=== PATIENT | male | born 1975 | race African-American/Black ===

== ENCOUNTER 2019-12-29 16:52 | Emergency (ER) | payer MEDICAID ==
[~2019-12-29] VITALS: Ht 172.7 cm; Wt 86.3 kg
--- NOTE | 2019-12-29 18:22 | RAD ---
PQRS Compliance Statement: One or more of the following individualized dose reduction techniques were utilized for this examination: 1. Automated exposure control 2. Adjustment of the mA and/or kV according to patient size 3. Use of iterative reconstruction technique CT head and maxillofacial without contrast 12/29/2019 5:47 PM INDICATION: Linear rash and forehead. 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 Multiple axial CT images of the maxillofacial structures were obtained without intravenous contrast. Coronal and sagittal reformats are provided. FINDINGS: Head and maxillofacial: Ventricles, sulci and basal cisterns are within normal limits. There is no hydrocephalus. Barahona-white matter differentiation is normal. There is no acute intracranial hemorrhage. There is no mass, mass effect or midline shift. Posterior fossa is normal in appearance. Osseous orbits are intact. Globes are spherical and contour. There is no lens dislocation. Extraocular muscles are intact. No intraconal or extraconal mass is identified. Skull base is intact. Nasal bones are intact. There is near complete opacification of the left maxillary sinus. No osseous erosion is identified. Nasal septum is minimally deviated to the right. There is complete opacification of the left mastoid air cells and left middle ear cavity. No acute fracture of the paranasal sinuses is identified. Pterygoid plates are intact. Left ostiomeatal unit appears occluded. Temporomandibular joints are well aligned. Visualized nasopharynx and oropharynx are intact. Soft tissues are normal. Maxilla and mandible are intact. Visualized dentition appear normal. IMPRESSION: 1. No acute intracranial hemorrhage. 2. Moderate to advanced mucosal thickening involving the left maxillary sinus. Correlate with prior history of tumor. Findings may reflect mucosal inflammatory changes from obstruction of the ostiomeatal unit. 3. There is opacity at the left mastoid air cells and middle ear cavity. Findings may reflect otomastoiditis. Electronically signed by: Bia Angeles MD (12/29/2019 6:19 PM) [facility]
--- NOTE | 2019-12-29 19:17 | PHYS DOC ---
Past Medical History Past Medical History: Arthritis, Asthma, Hypertension Past Surgical History: Other Additional Past Surgical Histo: left ear Smoking Status: Current Every Day Smoker Additional Information: Alcohol Use: Occasionally General Adult EDM: Chief Complaint: OTHER COMPLAINTS HPI: HPI: Patient is a 44 year old AA male who presents to the emergency department with complaints of a red vertical line on his forehead that began 3 days prior to arrival. 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 He denies any recent yardwork or new environmental exposures. Patient denies any new medications, detergents, moisturizers, or soaps. He denies any vision changes, headache, sinus pressure, nasal congestion, fever, sore throat, nausea, vomiting, shortness of breath, or wheezing. Patient states that he has been unable to have the sinus tumor removed due to medication noncompliance and his high blood pressure not being controlled. He currently denies any pain. Review of Systems: Review of Systems: Complete review of systems is negative unless otherwise documented in the HPI. Heart Score: Risk Factors: Risk Factors: DM, Current or recent (<one month) smoker, HTN, HLP, family history of CAD, obesity. Risk Scores: Score 0 - 3: 2.5% MACE over next 6 weeks - Discharge Home Score 4 - 6: 20.3% MACE over next 6 weeks - Admit for Clinical Observation Score 7 - 10: 72.7% MACE over next 6 weeks - Early Invasive Strategies Physical Exam: PE: Constitutional: Well developed, well nourished, no acute distress, non-toxic appearance. [] HENT: Normocephalic, atraumatic, bilateral external ears normal, nose normal; unable to visualize TMs due to waxy debris, no erythema or tenderness over mastoid process of bilateral ears [] Eyes: PERRLA, EOMI, conjunctiva normal, no discharge. [] Neck: Normal range of motion, no stridor. [] Cardiovascular:Heart rate regular rhythm Lungs & Thorax: Respirations even and unlabored, no retractions, no respiratory distress Skin: Warm, dry, no erythema, no rash. [] Extremities: No cyanosis, ROM intact, no edema. [] Neurologic: Alert and oriented X 3, no focal deficits noted. [] Psychologic: Affect normal, judgement normal, mood normal. [] Current Patient Data: Vital Signs: Vital Signs Date Time Temp Pulse Resp B/P (MAP) Pulse Ox O2 Delivery O2 Flow Rate FiO2 12/29/19 17:01 98.5 94 20 195/118 (143) 96 Room Air 98.5 EKG: EKG: [] Radiology/Procedures: Radiology/Procedures: PROCEDURE: CT HEAD AND MAXILLOFACIAL [facility] Compliance Statement: One or more of the following individualized dose reduction techniques were utilized for this examination: 1. Automated exposure control 2. Adjustment of the mA and/or kV according to patient size 3. Use of iterative reconstruction technique CT head and maxillofacial without contrast 12/29/2019 5:47 PM INDICATION: Linear rash and forehead. 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 Multiple axial CT images of the maxillofacial structures were obtained without intravenous contrast. Coronal and sagittal reformats are provided. FINDINGS: Head and maxillofacial: Ventricles, sulci and basal cisterns are within normal limits. There is no hydrocephalus. Barahona-white matter differentiation is normal. There is no acute intracranial hemorrhage. There is no mass, mass effect or midline shift. Posterior fossa is normal in appearance. Osseous orbits are intact. Globes are spherical and contour. There is no lens dislocation. Extraocular muscles are intact. No intraconal or extraconal mass is identified. Skull base is intact. Nasal bones are intact. There is near complete opacification of the left maxillary sinus. No osseous erosion is identified. Nasal septum is minimally deviated to the right. There is complete opacification of the left mastoid air cells and left middle ear cavity. No acute fracture of the paranasal sinuses is identified. Pterygoid plates are intact. Left ostiomeatal unit appears occluded. Temporomandibular joints are well aligned. Visualized nasopharynx and oropharynx are intact. Soft tissues are normal. Maxilla and mandible are intact. Visualized dentition appear normal. IMPRESSION: 1. No acute intracranial hemorrhage. 2. Moderate to advanced mucosal thickening involving the left maxillary sinus. Correlate with prior history of tumor. Findings may reflect mucosal inflammatory changes from obstruction of the ostiomeatal unit. 3. There is opacity at the left mastoid air cells and middle ear cavity. Findings may reflect otomastoiditis.[] Course & Med Decision Making: Course & Med Decision Making Pertinent Labs and Imaging studies reviewed. (See chart for details) Patient is a 44-year-old male who presented to the emergency department with concerns of a rash to his forehead for 3 days. Physical exam is likely a contact dermatitis. The patient reports concerns that the redness was from worsening of a known tumor in his sinus. He denied any fever. His vital signs are stable throughout the visit. CT head and maxillofacial revealed no acute findings. I provided the patient with ENT specialist Dr. Haji's information and encouraged him to follow-up with her about the sinus tumor. A prescription was written for hydrocortisone cream to apply to the irritated area on the forehead. Patient verbalized an understanding of home care, medications, follow-up, and return to ED instructions and was in agreement with the plan of care. [] Dragon Disclaimer: Dragon Disclaimer: This electronic medical record was generated, in whole or in part, using a voice recognition dictation system. Departure Departure Impression: Primary Impression: Contact dermatitis Qualified Codes: L25.9 - Unspecified contact dermatitis, unspecified cause Additional Impression: Opacification of maxillary sinus Disposition: 01 HOME, SELF-CARE Condition: STABLE Referrals: DIRK HAYS MD (PCP) KARYNA HAJI MD Patient Instructions: Contact Dermatitis, [id number], Sinusitis, [id number] Additional Instructions: Follow-up with speech and hearing clinic director Dr. raymundo sears for further evaluation and treatment of your sinus tumor. Fill the prescription and use it as directed for the rash on your face. Return to the emergency room if her symptoms worsen or you develop a fever. Scripts Hydrocortisone Valerate (HYDROCORTISONE VALERATE) 15 Gm Cream..g. 1 VERONICA TP TID PRN for ITCHING for 7 Days, #30 GM 0 Refills 1% hydrocortisone cream Prov: JOSE ROBERTO LOZANO [employer] 12/29/19 Justicifation of Admission Dx: Justifications for Admission: Justification of Admission Dx: N/A JOSE ROBERTO LOZANO [employer] Dec 29, 2019 19:17
[2019-12-29 20:01] VITALS: BP 182/93
[2019-12-29] MEDS ORDERED: HYDR15CR20 TP (20:35)
== END 2019-12-29 20:44 | disposition home or self-care (01) ==
LOC: ER 16:52
DX: L25.9 Unspecified contact dermatitis, unspecified cause (principal); H17.89 Other corneal scars and opacities; M19.90 Unspecified osteoarthritis, unspecified site; J45.909 Unspecified asthma, uncomplicated; I10 Essential (primary) hypertension; F17.200 Nicotine dependence, unspecified, uncomplicated; Z98.890 Other specified postprocedural states
CPT/HCPCS: 70450; 70486; 99285